=== PATIENT | female | born 1955 | race Two or more races ===

== ENCOUNTER 2016-07-31 16:40 | Inpatient (IN) | payer OTHER ==
[~2016-07-31] VITALS: Ht 162.6 cm; Wt 99.8 kg
[2016-07-31] MEDS ORDERED: OLME20TA21 PO (16:54)
[2016-07-31] MEDS ORDERED: IV NORMAL SALINE 1000 ML BAG IV ONE ×3 (17:15→20:15)
[2016-07-31 18:00] LABS: BASOPHILS # (AUTO) 0.2 K/uL (0.0-8.0); EOSINOPHILS % (AUTO) 0.1 % (0.0-7.0); HEMATOCRIT 27.7 % (37-47); HEMOGLOBIN 9.2 G/DL (12.0-16.0); LYMPHOCYTES # (AUTO) 2.4 K/UL (0.8-4.8); LYMPHOCYTES % (AUTO) 12.7 % (20.5-51.5); MEAN CORPUSCULAR HEMOGLOBIN 27.1 UUG (27.0-31.0); MEAN CORPUSCULAR HGB CONC 33 g/dL (32.0-37.0); MEAN CORPUSCULAR VOLUME 81.4 FL (81.0-99.0); MONOCYTES # (AUTO) 0.5 K/UL (0.1-1.30); MONOCYTES % (AUTO) 2.9 % (0.0-11.0); NEUTROPHILS # (AUTO) 15.4 K/UL (1.8-8.9); NEUTROPHILS % (AUTO) 83.3 % (38.5-71.5); PLATELET COUNT (AUTO) 263 K/UL (150-450); RED BLOOD CELL COUNT(AUTO) 3.41 MIL/UL (4.2-5.4); WHITE BLOOD COUNT (AUTO) 18.5 K/UL (4.0-11.2)
[2016-07-31 18:20] LABS: CREATININE 2.3 mg/dL (0.6-1.3); POTASSIUM 4.1 mmol/L (3.5-5.1)
[2016-07-31 18:22] LABS: BAND % (MANUAL) 8 % (0-10); NEUTROPHILS % (MANUAL) 72 % (42-75)
[2016-07-31 18:23] LABS: LYMPHOCYTES % (MANUAL) 14 % (20-40); MONOCYTES % (MANUAL) 6 % (2-10)
[2016-07-31 18:26] LABS: BILIRUBIN,DIRECT 0.1 mg/dL (0.0-0.2); BILIRUBIN,TOTAL 0.2 mg/dL (0.2-1.0); TOTAL PROTEIN, SERUM 6.4 g/dL (6.4-8.2)
[2016-07-31] MEDS ORDERED: PIPERACILLIN SODIUM/TAZOBACTAM 2.25 G in IV DEXTROSE 5% 50 ML IV ONE (18:30)
[2016-07-31] MEDS ORDERED: PIPERACILLIN/TAZOBACTAM/D5W 50 ML IV ONE (18:48)
--- NOTE | 2016-07-31 18:55 | NUR ---
pt refuses to drink the oral contrast at this point because she is not sure if she can tolerate it. pt said her own md is coming to er to check on her
[2016-07-31] MEDS ORDERED: DIATR MEGLU/DIATRIZOATE SODIUM 120 ML BOTTLE ONE (19:01)
--- NOTE | 2016-07-31 19:15 | NUR ---
Received report from TANGELA Ralph. Assumed care of pt at this time. Pt resting in position of comfort for self. No complaints at this time. Resp even and unlabored. Pt awaiting arrival of her surgeon. Family at bedside.
--- NOTE | 2016-07-31 19:30 | NUR ---
Pt surgeon at bedside.
--- NOTE | 2016-07-31 20:10 | NUR ---
Pt to CT via nikolas
[2016-07-31] MEDS ORDERED: DIATR MEGLU/DIATRIZOATE SODIUM 120 ML BOTTLE PO ONE (20:15)
--- NOTE | 2016-07-31 20:35 | NUR ---
Pt returned from CT. Resting in position of comfort for self. Fluid bolus infusing freely to gravity. No complaints at this time. Awaiting CT results.
--- NOTE | 2016-07-31 21:48 | NUR ---
[facility] paged for Dr. Grace for admission.
[2016-07-31 21:56] LABS: *BILIRUBIN,URIN NEGATIVE (NEGATIVE); *BLOOD, URINE NEGATIVE (NEGATIVE); *COLOR,URINE LIGHT YELLOW (YELLOW); *KETONES,URINE NEGATIVE (NEGATIVE); *PROTEIN,URINE NEGATIVE (NEGATIVE); *UROBILINOGEN,URINE 0.2 E.U./dl (NORMAL); LEUKOCYTE ESTERASE ,URINE 1+ (NEGATIVE); NITRITE, URINE NEGATIVE (NEGATIVE); PH,URINE 5.5 (5.0-8.0); UGLUCOSE NEGATIVE (NEGATIVE)
[2016-07-31 22:02] LABS: *CLARITY,URINE HAZY (CLEAR)
[2016-07-31 22:03] LABS: BACTERIA,URINE FEW /HPF (NONE SEEN); RBC,URINE 0-3 /HPF (0-3); SQUAMOUS EPITHELIAL CELL,UR MANY /HPF (NONE SEEN)
--- NOTE | 2016-07-31 23:34 | NUR ---
Pt resting in position of comfort for self. No complaints at this time. Fluid bolus infusing freely to gravity. Pt to be admitted. Report called to TANGELA Umana. Preparing to transfer pt to the floor.
[2016-07-31] MEDS ORDERED: ONDANSETRON 4 MG/2 ML VIAL IV PRN (23:45)
[2016-07-31] MEDS ORDERED: MORPHINE SULFATE 2 MG/1 ML DISP.SYRIN IV PRN (23:45)
[2016-08-01 00:45] VITALS: BP 90/49
[2016-08-01] MEDS ORDERED: CEFTRIAXONE 1 G VIAL ONE (01:01)
[2016-08-01 04:00] VITALS: BP 96/42
[2016-08-01] MEDS ORDERED: PANTOPRAZOLE SODIUM 40 MG TABLET.DR PO SCH (07:00)
[2016-08-01] MEDS ORDERED: ACETAMINOPHEN 325 MG TABLET PO PRN (08:00)
[2016-08-01 10:30] LABS: BASOPHILS % (AUTO) 0.3 % (0.0-2.0); EOSINOPHILS % (AUTO) 0.2 % (0.0-7.0); HEMOGLOBIN 8.2 G/DL (12.0-16.0); LYMPHOCYTES # (AUTO) 2.6 K/UL (0.8-4.8); LYMPHOCYTES % (AUTO) 19.5 % (20.5-51.5); MEAN CORPUSCULAR HEMOGLOBIN 27.2 UUG (27.0-31.0); MEAN CORPUSCULAR HGB CONC 33 g/dL (32.0-37.0); MEAN CORPUSCULAR VOLUME 82.1 FL (81.0-99.0); MONOCYTES # (AUTO) 0.8 K/UL (0.1-1.30); MONOCYTES % (AUTO) 5.9 % (0.0-11.0); NEUTROPHILS # (AUTO) 10.1 K/UL (1.8-8.9); NEUTROPHILS % (AUTO) 74.1 % (38.5-71.5); PLATELET COUNT (AUTO) 274 K/UL (150-450)
[2016-08-01 10:37] LABS: HEMATOCRIT 24.6 % (37-47); WHITE BLOOD COUNT (AUTO) 13.5 K/UL (4.0-11.2)
[2016-08-01 10:44] LABS: BILIRUBIN,TOTAL 0.2 mg/dL (0.2-1.0); CREATININE 1.1 mg/dL (0.6-1.3); MAGNESIUM 1.9 mg/dL (1.8-2.4); PHOSPHOROUS 2.3 mg/dL (2.5-4.9); POTASSIUM 3.7 mmol/L (3.5-5.1); TOTAL PROTEIN, SERUM 6.4 g/dL (6.4-8.2)
[2016-08-01 10:49] LABS: THYROID STIMULATING HORMONE 0.649 mIU/mL (0.358-3.740)
[2016-08-01 11:22] VITALS: BP 103/45
[2016-08-01] MEDS ORDERED: NEUTRA PHOS PACKET PO ONE (15:15)
[2016-08-01 15:27] VITALS: BP 107/58
--- NOTE | 2016-08-01 17:07 | NUR ---
Emilia from [facility] [ ] called and stated that they will be transferring the patient to [facility] - Room#3228 - Telemetry Bed [ ; [id number] [place] [address]] via [facility] [ ] because she is currently out of network. Spoke to the patient and her family about the transfer and explained that we are out of network and she acknowledged understanding why and agreed to transfer to [facility]. Her admitting MD will be Dr. Chanel Katz. Her RN, Katherine, is aware of her transfer and will call the facility for the report.
[2016-08-01] MEDS ORDERED: ONDA4VIA30 IV (17:38)
[2016-08-01] MEDS ORDERED: ACET325T53 PO (17:38)
[2016-08-01] MEDS ORDERED: CEFT1VIA15 IV (17:38)
[2016-08-01] MEDS ORDERED: PANT40TA2 PO (17:38)
[2016-08-01] MEDS ORDERED: Morphine Sulfate Inj IV (17:38)
--- NOTE | 2016-08-01 19:10 | NUR ---
PATIENT WAS AMBULATORY TODAY, AND EXPERIENCED A MODERATE HEADACHE. PATIENT HAS BEEN TOLERATING FULL LIQUIDS, VITALS WNL. PATIENT WILL BE PICKED UP BY AMBULANCE TO BE TRANSFERRED TO [facility].
[2016-08-01 19:30] VITALS: BP 111/57
[2016-08-01] MEDS ORDERED: CEFTRIAXONE 1 G in IV DEXTROSE 5% 50 ML IV SCH ×3 (21:00)
== END 2016-08-01 19:30 | disposition short-term general hospital (02) | DRG 871 ==
LOC: ER 16:43 → TELE 23:27
PROVIDERS: ADMIT Internal Medicine; ATTEND Internal Medicine
DX: A41.9 Sepsis, unspecified organism (principal); N17.0 Acute kidney failure with tubular necrosis; K66.1 Hemoperitoneum; N39.0 Urinary tract infection, site not specified; E44.1 Mild protein-calorie malnutrition; E87.1 Hypo-osmolality and hyponatremia; Z98.84 Bariatric surgery status; I95.9 Hypotension, unspecified; D50.0 Iron deficiency anemia secondary to blood loss (chronic); R42 Dizziness and giddiness; E11.65 Type 2 diabetes mellitus with hyperglycemia; E66.9 Obesity, unspecified; Z68.37 Body mass index [BMI] 37.0-37.9, adult; I10 Essential (primary) hypertension; Z87.891 Personal history of nicotine dependence
CPT/HCPCS: 36415; 70030-TC; 83550; 83690; 83735; 84100; 84443; 85025; 93005; A4663; J0696; J2270; J2543; J7030; J7060; Q9963